=== PATIENT | male | born 1935 | race Caucasian/White ===

== ENCOUNTER 2017-10-29 12:56 | Emergency (ER) | payer OTHER ==
[~2017-10-29] VITALS: Ht 180.3 cm; Wt 88.9 kg
[~2017-10-29 12:56] MED LIST: ALTACE10 M1 PO; ALTACE10 MG PO; ASPIRIN EC81 M1 PO; ATORVASTATIN CA40 MG; BENICAR40 MG PO; BYSTOLIC10 MG PO; CARAFATE 1 GM TA1 G1 PO; CARDIZEM CD120 MG PO; COUMADIN 1MG TAB1 M1; DIAZEPAM 10 MG10 M1 PO; FLORINEF ACETA0.1 MG PO; HYDRALAZINE 2525 M1 PO; HYDRALAZINE 2525 MG PO; HYDROCODONE-AP1 EAC6 PO; IMDUR 60 MG TAB60 M1 PO; LIPITOR10 MG PO; LIPITOR20 MG PO; NITROQUICK0.4 MG SUBLING; PACERONE 200 M200 M1 PO; RANITIDINE HCL300 M1 PO; TOPROL XL100 MG; TRAMADOL 50 MG50 MG PO; TYLENOL325 MG PO; XARELTO15 MG PO; XARELTO20 MG PO
[2017-10-29] MEDS ORDERED: COUMADIN 2 MG TA2 M1 PO ×2 (13:34→13:35)
[2017-10-29] MEDS ORDERED: COUMADIN 4 MG TA4 M1 PO (13:36)
[2017-10-29] MEDS ORDERED: LASIX 20 MG TAB20 MG PO (13:39)
[2017-10-29 13:40] LABS: ABSOLUTE BASOPHILS 0.1 thou/uL (0.0-0.2); ABSOLUTE EOSINOPHILS 0.1 thou/uL (0.0-0.7); ABSOLUTE LYMPHOCYTES 2.2 thou/uL (0.8-5.3); ABSOLUTE MONOCYTES 0.8 thou/uL (0.0-1.2); ABSOLUTE NEUTROPHILS 5.4 thou/uL (1.6-8.1); BASOPHILS 0.7 %; EOSINOPHILS 1.5 %; HEMATOCRIT 36.5 % (42.0-52.0); HEMOGLOBIN 12.3 gm/dL (14.0-18.0); LYMPHOCYTES 25.3 %; MCH 33.2 pg (26.0-34.0); MCHC 33.7 g/dL (28.0-37.0); MCV 98.4 fL (80.0-100.0); MONOCYTES 9.5 %; MPV 8.7 fl. (7.2-11.1); NUCLEATED RBCS 0 /100WBC; PLATELET COUNT* 202 thou/uL (150-400); RBC 3.71 mil/uL (4.50-6.00); RDW-CV 14.2 % (10.5-14.5); WBC 8.6 thou/uL (4.0-11.0)
[2017-10-29 13:46] LABS: ANION GAP 7 mmol/L (7-16); BUN 16 mg/dL (7-18); CALCIUM 8.3 mg/dL (8.5-10.1); CHLORIDE 105 mmol/L (98-107); CO2 29 mmol/L (21-32); CREATININE 1.3 mg/dL (0.6-1.3); GLUCOSE 101 mg/dL (70-99); POTASSIUM 3.5 mmol/L (3.5-5.1); SODIUM 141 mmol/L (136-145)
[2017-10-29 13:50] LABS: APTT 36.3 Seconds (25.0-31.3); INR 2.1
[2017-10-29 14:00] LABS: ALBUMIN 3.4 g/dL (3.4-5.0); ALKALINE PHOSPHATASE 78 U/L (46-116); NT-PRO BRAIN NAT PEPTIDE 1317 pg/mL (<300); SGOT 26 U/L (15-37); SGPT 29 U/L (30-65); TOTAL BILIRUBIN 0.5 mg/dL (<0.1-1.0); TOTAL PROTEIN 6.8 g/dL (6.4-8.2); TROPONIN-I LEVEL <0.06 ng/mL (<0.06)
[2017-10-29 15:53] VITALS: BP 139/65
--- NOTE | 2017-10-29 17:09 | EKG ---
[place] [address] ELECTROCARDIOGRAM REPORT Name: KEYANA AVINA [id number] Admission: 10/29/17 Attend Phys: Discharge: 10/29/17 Date of : 31 Report #: [id number] THIS REPORT FOR: //name// [facility] ED Test Date: 2017-10-29 Test Time: 13:01:19 Pat Name: KEYANA AVINA Department: Room: Gender: M Jewel Sawyer: KASIA : 1935 Requested By: Yue El Order Number: [id number] MD: Shane Russo Measurements Intervals May Rate: 50 P: 42 NV: 201 QRS: -19 QRSD: 118 T: 34 QT: 537 QTc: 490 Interpretive Statements Sinus rhythm Incomplete left bundle branch block LVH with secondary repolarization abnormality Borderline prolonged QT interval No previous ECG available for comparison Electronically Signed On 10-29-2017 17:09:22 ADJUDICATION SPECIALIST by Shane Russo [email or web address] <ELECTRONICALLY SIGNED> By: Shane Russo MD, [facility] 10/29/17 1709 1301 1301 Shane Russo MD, FACC /EPI
== END 2017-10-29 15:54 | disposition home or self-care (01) ==
LOC: M.ERS 12:56
PROVIDERS: Personal Emergency Response Attendant
DX: R07.9 Chest pain, unspecified (principal); I10 Essential (primary) hypertension; K21.9 Gastro-esophageal reflux disease without esophagitis; M19.90 Unspecified osteoarthritis, unspecified site; Z86.73 Personal history of transient ischemic attack (TIA), and cerebral infarction without residual deficits; Z88.0 Allergy status to penicillin; Z88.8 Allergy status to other drugs, medicaments and biological substances